=== PATIENT | male | born 1995 | race Caucasian/White ===

== ENCOUNTER 2020-04-29 18:29 | Emergency (ER) | payer BC ==
[~2020-04-29] VITALS: Ht 180.3 cm; Wt 76.4 kg
[2020-04-29 18:30] VITALS: BP 133/65
[2020-04-29] MEDS ORDERED: KETOROLAC 60 MG/2 ML VIAL. IM ONE (19:30)
--- NOTE | 2020-04-29 20:46 | RAD ---
EXAMINATION: XR KNEE 4 VIEWS WITH PATELLA_RT CLINICAL HISTORY: Right knee pain TECHNIQUE: XR KNEE 4 VIEWS WITH PATELLA_RT Number of Images/Views: 4 COMPARISON: None FINDINGS: Joint spaces and alignment maintained. No acute fracture. Questionable small joint effusion. IMPRESSION: No acute osseous abnormality right knee. Electronically signed by: Steve Ricardo DO (04/29/2020 8:44 PM) [facility]
--- NOTE | 2020-04-29 21:02 | PHYS DOC ---
Past History Past Medical History: No Pertinent History Alcohol Use: None Adult General Chief Complaint Chief Complaint: KNEE INJURY HPI HPI Patient is a 24-year-old male presents emergency department complaining of right knee pain for the past month. 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 States that he is constantly twisting left and right while in a standing position. Patient denies injuring his right knee. Patient rates his pain a 4/10 on a 1-10 pain scale at rest, stating that it increases to a 7 or 8/10 when working. Patient denies any allergies to medications, denies taking any medicines at home, denies any surgeries. Patient denies any recent fever chills, denies chest pain, cough, congestion, shortness of breath. Patient denies any other physical pains or physical illnesses. Review of Systems Review of Systems 14 body systems of review of systems have been reviewed. See HPI for pertinent positives and negative responses, otherwise all other systems are negative, nonpertinent or noncontributory. Current Medications Current Medications Current Medications Medications (Trade) Dose Ordered Sig/Abraham Start Time Stop Time Status Last Admin Dose Admin Ketorolac Tromethamine (Toradol Im) 60 mg 1X ONCE 04/29/20 19:30 04/29/20 19:31 DC 04/29/20 19:28 60 MG Allergies Allergies Allergies Coded Allergies Type Severity Reaction Last Updated Verified No Known Drug Allergies 04/29/20 No Physical Exam Physical Exam Constitutional: Well developed, well nourished, no acute distress, non-toxic appearance. HENT: Normocephalic, atraumatic, bilateral external ears normal, oropharynx moist, no oral exudates, nose normal. Eyes: PERRLA, EOMI, conjunctiva normal, no discharge. Neck: Normal range of motion, no tenderness, supple, no stridor. Cardiovascular:Heart rate regular rhythm, no murmur Lungs & Thorax: Bilateral breath sounds clear to auscultation Abdomen: Bowel sounds normal, soft, no tenderness, no masses, no pulsatile masses. Skin: Warm, dry, no erythema, no rash. Back: No tenderness, no CVA tenderness. Extremities: No tenderness, no cyanosis, no clubbing, ROM intact, no edema. Except for patient can straighten the right leg out but elicits pain doing so, no clicking during range of motion. Felice's tests anterior drawer test lateral pivot shift test and Gen's test negative of the right knee. Distal cap refill less than 2 seconds, 2+ dorsalis pedis and posterior tibial pulses. No swelling noted of the right knee, no distal swelling noted, no erythema noted. There is no popliteal tenderness. AROM/PROM did elicit pain. Neurologic: Alert and oriented X 3, normal motor function, normal sensory function, no focal deficits noted. Psychologic: Affect normal, judgement normal, mood normal. Current Patient Data Vital Signs Vital Signs Date Time Temp Pulse Resp B/P (MAP) Pulse Ox O2 Delivery O2 Flow Rate FiO2 04/29/20 18:30 98.0 79 16 133/65 (87) 99 Room Air EKG EKG [] Radiology/Procedures Radiology/Procedures STATUS: REG ER ORD. PHYSICIAN: ABILIO WRIGHT APRN REASON: PAIN RIGHT KNEE PROCEDURE: KNEE RIGHT 4V EXAMINATION: XR KNEE 4 VIEWS WITH PATELLA_RT CLINICAL HISTORY: Right knee pain TECHNIQUE: XR KNEE 4 VIEWS WITH PATELLA_RT Number of Images/Views: 4 COMPARISON: None FINDINGS: Joint spaces and alignment maintained. No acute fracture. Questionable small joint effusion. IMPRESSION: No acute osseous abnormality right knee. Electronically signed by: Steve Ricardo DO (04/29/2020 8:44 PM) [facility] DICTATED AND SIGNED BY: STEVE RICARDO DO DATE: 04/29/202040 CC: ABILIO WRIGHT APRN; PCP,NO ~MTH0 0 Heart Score Risk Factors: Risk Factors: DM, Current or recent (<one month) smoker, HTN, HLP, family history of CAD, obesity. Risk Scores: Risk Factors: DM, Current or recent (<one month) smoker, HTN, HLP, family history of CAD, obesity. Course & Med Decision Making Course & Med Decision Making Pertinent Labs and Imaging studies reviewed. (See chart for details) 24-year-old male presents emergency department complaint of right knee pain that he thinks may be is from repetitious work. 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 Patient denies injury to the knee. Patient states he has been taking [id number] Naprosyn without help. Physical exam the right knee was unremarkable however did elicit pain during range of motion exam. An x-ray was ordered and read negative for acute fracture or acute process per house radiologist interpretation. Patient was given 60 mg of Toradol IM for pain along with an Leander wrap of the right knee which patient states relieves his pain down to a 1/10 pain upon reexamination. Discussed with patient that we will give work excuse for today and tomorrow, RICE therapy, prescription for 600 mg Motrin to take 3 times a day as needed pain, follow-up with primary care physician soon, return to ER precautions and concerns. Patient gave verbal understanding of discharge home instructions, had no further questions or concerns and was discharged home without incident. Impression: #1 right knee pain Dragon Disclaimer Dragon Disclaimer This electronic medical record was generated, in whole or in part, using a voice recognition dictation system. Departure Departure: Impression: Primary Impression: Right knee pain Disposition: 01 DC HOME SELF CARE/HOMELESS Condition: IMPROVED Referrals: PCP,KAROLINA (PCP) Patient Instructions: Elastic Bandage and RICE Additional Instructions: Your right knee has been examined and was found without fracture or infectious process. Please take prescribed medications as directed, see your primary care physician soon if not helping, follow RICE therapy, return the emergency department for worsening symptoms or other concerns. EMERGENCY DEPARTMENT GENERAL DISCHARGE INSTRUCTIONS Thank you for coming to [facility] (ED) today and trusting us with you care. We trust that you had a positivie experience in our Emergency Department. If you wish to speak to the department management, you may call the director at [phone]. YOUR FOLLOW UP INSTRUCTIONS ARE FOLLOWS: 1. Do you have a private Doctor? If you do not have a private doctor, please ask for a resource list of physicians or clinics that may be able to assist you with follow up care. 2. The Emergency Physician has interpreted your x-rays. The X-Ray specialist will also review them. If there is a change in the findings, you will be notified in 48 hours when at all possible. 3. A lab test or culture has been done, your results will be reviewed and you will be notified if you need a change in treatment. ADDITIONAL INSTRUCTIONS AND INFORMATION: 1. Your care today has been supervised by a physician who is specially trained in emergency care. Many problems require more than one evaluation for a complete diagnosis and treatment. We recommend that you schedule your follow up appointment as recommended to ensure complete treatment of you illness or injury. If you are unable to obtain follow up care and continue to have a problem, or if your condition worsens, we recommend that you return to the ED. 2. We are not able to safely determine your condition over the phone nor are we able to give sound medical advice over the phone. For these safety reasons, if you call for medical advice we will ask you to come to the ED for further evaluation. 3. If you have any questions regarding these discharge instructions please call the ED at [phone]. SAFETY INFORMATION: In the interest of safety, wellness, and injury prevention; we encourage you to wear your sealbelt, if you smoke; quite smoking, and we encourage family to use a protective helmet for bicycling and other sporting events that present an increased risk for head injury. IF YOUR SYMPTOMS WORSEN OR NEW SYMPTOMS DEVELOP, OR YOU HAVE CONCERNS ABOUT YOUR CONDITION; OR IF YOUR CONDITION WORSENS WHILE YOU ARE WAITING FOR YOUR FOLLOW UP APPOINTMENT; EITHER CONTACT YOUR PRIMARY CARE DOCTOR, THE PHYSICIAN WHOSE NAME AND NUMBER YOU WERE GIVEN, OR RETURN TO THE ED IMMEDIATELY. Scripts Ibuprofen (IBUPROFEN) 600 Mg Tablet 600 MG PO TID PRN PRN for PAIN, #30 TAB 0 Refills Prov: ABILIO WRIGHT APRN 04/29/20 Problem Qualifiers Primary Impression: Right knee pain Chronicity: acute Qualified Codes: M25.561 - Pain in right knee ABILIO WRIGHT APRN Apr 29, 2020 21:02
[2020-04-29] MEDS ORDERED: IBUP600T16 PO (21:20)
== END 2020-04-29 21:30 | disposition home or self-care (01) ==
LOC: ER 18:29
DX: M25.561 Pain in right knee (principal)
CPT/HCPCS: 73564; 96372; 99283; J1885

== ENCOUNTER 2020-06-17 05:09 | Emergency (ER) | payer BC ==
[~2020-06-17] VITALS: Ht 180.3 cm; Wt 76.3 kg
[~2020-06-17 05:09] MED LIST: IBUP600T16 PO
[2020-06-17 05:28] VITALS: BP 144/90
--- NOTE | 2020-06-17 05:58 | PHYS DOC ---
Past History Past Medical History: Asthma, Depression, Other Additional Past Medical Histor: ADHD (JE PRUITT MD) Past Surgical History: Other Additional Past Surgical Histo: wisdom teeth (JE PRUITT MD) Additional Smoking Information: e cig Alcohol Use: None (JE PRUITT MD) Adult General Chief Complaint Chief Complaint: SUICIDAL IDEATION HPI HPI Patient is a 24-year-old male with a past medical history significant for anxiety and depression, stating that when he was younger as a child he did have some issues with cutting but never had any thoughts about committing suicide or coming up with a plan. States that he currently works at [employer] ?[employer] and recently has been struggling with depression and was started on an antidepressant by his primary care physician about 2 weeks ago. States he was at work this morning, and felt like he just wanted to start crying, go home and put a gun in his mouth and shoot himself. States he is never had the strong feelings about wanting to hurt himself before. States that even here in the ED he still having intermittent thoughts of wanting to hurt himself. Denies any hallucinations or homicidal ideation. Denies any alcohol or drug use. Denies any recent traumas, illnesses, fevers, chest pain, shortness of breath, abdominal pain, nausea, vomiting. (JE PRUITT MD) Review of Systems Review of Systems Review of systems otherwise unremarkable except noted in HPI (JE PRUITT MD) Allergies Allergies Allergies Coded Allergies Type Severity Reaction Last Updated Verified No Known Drug Allergies 06/17/20 No (JE PRUITT MD) Physical Exam Physical Exam Constitutional: Well developed, well nourished, no acute distress, non-toxic appearance. [] HENT: Normocephalic, atraumatic, bilateral external ears normal, oropharynx moist, no oral exudates, nose normal. [] Eyes: conjunctiva normal, no discharge. [] Neck: Normal range of motion, Cardiovascular:Heart rate regular rhythm, no murmur [] Lungs & Thorax: Breath sounds normal and no acute respiratory distress Abdomen: soft, no tenderness, no masses, no pulsatile masses. [] Skin: Warm, dry, no erythema, no rash. [] Back: No tenderness, Extremities: No tenderness, no cyanosis, no clubbing, ROM intact, no edema. [] Neurologic: Alert and oriented X 3, normal motor function, normal sensory function, no focal deficits noted. [] Psychologic: Patient cooperative and pleasant, but a little emotional with tearing while talking. States he still having thoughts about wanting to hurt himself and had thought about putting a gun in his mouth earlier and shooting himself. Denies any hallucinations or homicidal ideation. States that he started feeling this way and does not want to feel like that anymore. States that his goal for the visit is to get some help and if he needs to be admitted for that he is okay. (JE PRUITT MD) Current Patient Data Vital Signs Vital Signs Date Time Temp Pulse Resp B/P (MAP) Pulse Ox O2 Delivery O2 Flow Rate FiO2 06/17/20 05:28 98.6 82 16 144/90 (108) 97 Room Air (JE PRUITT MD) EKG EKG [] (JE PRUITT MD) Radiology/Procedures Radiology/Procedures [] (JE PRUITT MD) Heart Score Risk Factors: Risk Factors: DM, Current or recent (<one month) smoker, HTN, HLP, family history of CAD, obesity. Risk Scores: Risk Factors: DM, Current or recent (<one month) smoker, HTN, HLP, family history of CAD, obesity. (JE PRUITT MD) Course & Med Decision Making Course & Med Decision Making Patient is a 24-year-old male who presents with suicidal ideation and plan of committing suicide by putting a gun in his mouth. States he came to the emergency department because he started feeling this way, and wants help so he can feel normal again. Vital signs not concerning. Physical exam noted above. The rest of patient's evaluation, treatment and disposition handed off to day team. [] (JE PRUITT MD) Course & Med Decision Making Assumed care of patient at checkout. At checkout lab work was pending. Lab work is unremarkable. At this time patient is medically stable for psychiatric placement. (LLOYD ALMAZAN MD) Dragon Disclaimer Dragon Disclaimer This electronic medical record was generated, in whole or in part, using a voice recognition dictation system. (JE PRUITT MD) Departure Departure: Impression: Primary Impression: Suicidal ideation Disposition: 02 DC/TRF OTHER SHORT TERM HOS Condition: STABLE Referrals: PCP,NO (PCP) JE PRUITT MD Jun 17, 2020 05:58 LLOYD ALMAZAN MD Jun 17, 2020 07:51
[2020-06-17 06:12] LABS: BARBITURATES NEG (NEG); BENZODIAZEPINES NEG (NEG); CANNABINOIDS NEG (NEG); COCAINE NEG (NEG); METHADONE NEG (NEG); OPIATES NEG (NEG); PHENCYCLIDINE NEG (NEG)
[2020-06-17 06:13] LABS: AMPHETAMINE/METHAMPHETAMINE NEG (NEG)
[2020-06-17 06:21] LABS: BILIRUBIN,URINE NEG (NEG); CLARITY,URINE CLEAR; COLOR,URINE AMBER; GLUCOSE,URINE NEG (NEG); NITRITE,URINE NEG (NEG); RBC,URINE 0 /HPF (0-2); UROBILINOGEN,URINE 0.2 mg/dL (0.2 mg/dL); WBC,URINE RARE /HPF (0-4)
[2020-06-17 06:21] LABS: CALCIUM 9.4 mg/dL (8.5-10.1); CREATININE 1.3 mg/dL (0.7-1.3); POTASSIUM 3.7 mmol/L (3.5-5.1)
[2020-06-17 06:22] LABS: BACTERIA,URINE 0 /HPF (0-FEW); SQUAMOUS EPITHELIAL CELL,UR FEW /LPF
[2020-06-17 06:27] LABS: ALBUMIN 4.3 g/dL (3.4-5.0); ALBUMIN/GLOBULIN RATIO 1.2 (1.0-1.7); TOTAL BILIRUBIN 0.7 mg/dL (0.2-1.0); TOTAL PROTEIN 7.8 g/dL (6.4-8.2)
[2020-06-17 06:39] LABS: ACETAMIN < 2 mcg/mL (10-30); ETHANOL < 10 mg/dL (0-10); SALIC < 2.8 mg/dL (2.8-20.0)
[2020-06-17 06:58] LABS: BASO # 0.1 x10^3/uL (0.0-0.2); BASO % 1 % (0-3); EOS # 0.1 x10^3/uL (0.0-0.7); EOS % 1 % (0-3); HEMATOCRIT 46.9 % (39.0-53.0); LYMPH # 2.1 x10^3/uL (1.0-4.8); LYMPH % 17 % (24-48); MEAN CORPUSCULAR HEMOGLOBIN 29 pg (25-35); MEAN CORPUSCULAR HGB CONC 34 g/dL (31-37); MEAN CORPUSCULAR VOLUME 86 fL (79-100); MONO # 1.1 x10^3/uL (0.0-1.1); MONO % 9 % (0-9); NEUT % 73 % (31-73); PLATELET COUNT 255 x10^3/uL (140-400); RED BLOOD COUNT 5.48 x10^6/uL (4.30-5.70); RED CELL DISTRIBUTION WIDTH 12.8 % (11.5-14.5); WHITE BLOOD COUNT 12.4 x10^3/uL (4.0-11.0)
== END 2020-06-17 10:52 ==
LOC: ER 05:09
DX: R45.851 Suicidal ideations (principal); Z20.822 Contact with and (suspected) exposure to COVID-19; J45.909 Unspecified asthma, uncomplicated; F32.9 Major depressive disorder, single episode, unspecified; F17.210 Nicotine dependence, cigarettes, uncomplicated; Z98.890 Other specified postprocedural states
CPT/HCPCS: 36415; 80053; 80307; 80329; 81001; 85025; 87426; 99285; C9803; G0480; U0003